=== PATIENT | male | born 1995 | race Caucasian/White ===

== ENCOUNTER 2020-02-29 13:58 | Emergency (ER) | payer BC, SELFPAY ==
[2020-02-29 14:02] VITALS: BP 167/92; PULSE 92; RESP 18; TEMP 37.2; O2SAT 98; BMI 37.3
[2020-02-29 14:14] VITALS: BP 167/92; PULSE 97; RESP 18; TEMP 37.2; O2SAT 98
--- NOTE | 2020-02-29 14:34 | DI.RAD.S_ITS ---
PROCEDURE: XR RIBS LT MIN 3V W CXR1V INDICATIONS: pain/ swelling left ribs TECHNIQUE: 2 views of the left ribs were acquired, along with a single view chest. COMPARISON: None. FINDINGS: Surgical changes and devices: None. Bones and chest wall: No fractures or dislocations. No suspicious bony lesions. Overlying soft tissues appear unremarkable. Lungs and pleura: No pleural effusions or pneumothorax. Lungs appear clear. Mediastinum: Mediastinal contours appear normal. Heart size is normal. IMPRESSION: No gross acute displaced left rib fracture. No acute cardiopulmonary pathology. Dictated by: Adrian Deal M.D. on 02/29/2020 at 15:04 Approved by: Adrian Deal M.D. on 02/29/2020 at 15:05
[2020-02-29] MEDS: KETOROLAC 60 MG/2 ML VIAL IM (14:40)
--- NOTE | 2020-02-29 14:48 | ED_ITS ---
HPI - Skin/Abscess/Foreign Bdy <SHELTON Graham - Last Filed: 02/29/20 16:59> General Chief complaint: Skin/Abscess/Foreign Body Stated complaint: Lump on Lt Side under rib cage Time Seen by Provider: 02/29/20 14:11 Source: patient Mode of arrival: Ambulatory Limitations: no limitations History of Present Illness HPI narrative: The patient is a 24-year-old male nonsmoker who denies pertinent medical history presents with a chief complaint of ?swelling on my left side of my ribs.He states this has been going on for 3 days, no eggs specific factors made him come to the emergency department today other than he wanted to get it checked out does not have a primary care provider. He denies any known injury. Denies any cough or shortness of breath. He has not taken anything for pain or swelling. He denies any specific palpable mass, but complains of generalized swelling to the area. Related Data Allergies Allergy/AdvReac Type Severity Reaction Status Date / Time No Known Drug Allergies Allergy Verified 02/29/20 14:12 Review of Systems <SHELTON Graham - Last Filed: 02/29/20 16:59> Review of Systems Narrative: GENERAL: Denies chills, fatigue, malaise, fever, sweats. HEENT: Denies sinus pain, ear pain, sore throat, difficulty swallowing, dizziness. RESPIRATORY: See HPI CARDIOVASCULAR: Denies chest pain, palpitations, orthopnea, edema, GASTROINTESTINAL: Denies nausea, vomiting, abdominal pain, diarrhea, constipation, melena. : Denies dysuria, frequency, incontinence, hematuria, urinary retention. MUSCULOSKELETAL: denies weakness, joint pain, or bony pain SKIN: Denies rash, skin lesions, or other NEUROLOGIC: Denies weakness, headache, numbness, change in speech, confusion, seizures, incoordination. PSYCHIATRIC: No concerning psychosocial issues. 12 point review of systems is negative except for those stated above Patient History <SHELTON Graham - Last Filed: 02/29/20 16:59> Social History Smoking Status: Never smoker Smoking Status: Never smoker Alcohol type: beer, wine and hard liquor Substance Use Type: does not use Exam <SHELTON Graham - Last Filed: 02/29/20 16:59> Narrative Exam Narrative: GENERAL: This is a well-nourished, well-developed patient, no acute distress HEAD: Atraumatic. Normocephalic. No temporal or scalp tenderness. EYES: Pupils equal round and reactive. Extraocular motions intact. No scleral icterus. No injection or drainage. ENT: Nose without bleeding, purulent drainage or septal hematoma. Throat without erythema, tonsillar hypertrophy or exudate. Uvula midline. Airway patent. NECK: Trachea midline. No JVD or lymphadenopathy. Supple, nontender, no meningeal signs. CARDIOVASCULAR: Regular rate and rhythm RESPIRATORY: Clear to auscultation. Breath sounds equal bilaterally. No wheezes, rales, or rhonchi. Slight swelling to distal anterior aspect of left chest wall. No pain to palpation or palpable mass. No pain to anterior posterior chest wall compression or lateral chest wall compression GASTROINTESTINAL: Abdomen soft, non-tender, nondistended. No hepato- splenomegaly, or palpable masses. No guarding. EXTREMITIES: No clubbing, cyanosis, or edema. No joint tenderness, effusion, or edema noted. BACK: Nontender without deformity or crepitance. No flank tenderness. NEURO: AOx3. SKIN: No rash or erythema on visible skin. No rash erythema laceration abrasion abscess visible lower left anterior chest wall. Initial Vital Signs Initial Vital Signs: Vital Signs Temperature 99 F 02/29/20 14:02 Pulse Rate 92 H 02/29/20 14:02 Respiratory Rate 18 02/29/20 14:02 Blood Pressure 167/92 H 02/29/20 14:02 Pulse Oximetry 98 02/29/20 14:02 <Erik Beebe MD - Last Filed: 02/29/20 18:19> Initial Vital Signs Initial Vital Signs: Vital Signs Temperature 99 F 02/29/20 14:02 Pulse Rate 92 H 02/29/20 14:02 Respiratory Rate 18 02/29/20 14:02 Blood Pressure 167/92 H 02/29/20 14:02 Pulse Oximetry 98 02/29/20 14:02 Course <DA Graham-ROSALIO - Last Filed: 02/29/20 16:59> Orders Ordered: ED Orders 02/29/20 14:34 XR ribs LT min 3V w CXR1V Stat Discontinued Medications Ketorolac Tromethamine (Toradol) 60 mg IM NOW ONE Stop: 04/22/20 14:35 Last Admin: 02/29/20 14:40 Dose: 60 mg Documented by: MEISENB Vital Signs Vital signs: Vital Signs - 8 hr 02/29/20 14:02 02/29/20 14:14 02/29/20 16:07 Temperature 99 F 99.0 F Pulse Rate 92 H 97 H 76 Respiratory Rate 18 18 Blood Pressure 167/92 H 152/81 H Blood Pressure [Right Arm] 167/92 H Pulse Oximetry 98 98 98 <Erik Beebe MD - Last Filed: 02/29/20 18:19> Orders Ordered: ED Orders 02/29/20 14:34 XR ribs LT min 3V w CXR1V Stat Discontinued Medications Ketorolac Tromethamine (Toradol) 60 mg IM NOW ONE Stop: 02/29/20 14:35 Last Admin: 02/29/20 14:40 Dose: 60 mg Documented by: MEISENB Vital Signs Vital signs: Vital Signs - 8 hr 02/29/20 14:02 02/29/20 14:14 02/29/20 16:07 Temperature 99 F 99.0 F Pulse Rate 92 H 97 H 76 Respiratory Rate 18 18 Blood Pressure 167/92 H 152/81 H Blood Pressure [Right Arm] 167/92 H Pulse Oximetry 98 98 98 MDM - Skin/Abscess/Foreign Bdy <SHELTON Graham - Last Filed: 02/29/20 16:59> Differential Diagnosis Differential diagnosis: Likely abscess of skin or subcutaneous tissue, viral exanthem, urticaria and contact dermatitis Imaging Data Chest x-ray: Radiologist's Impression: [address] [place] [id number] XRay Report Signed Patient: Bobby Randle#: [id number] : 1995Acct:[id number] Age/Sex: 24 / MDate of Service: 02/29/20 Loc: ED Accession Number: [id number] Procedure: XR ribs LT min 3V w CXR1V Ordering Provider: Franci Gross PROCEDURE: XR RIBS LT MIN 3V W CXR1V INDICATIONS: pain/ swelling left ribs TECHNIQUE: 2 views of the left ribs were acquired, along with a single view chest. COMPARISON: None. FINDINGS: Surgical changes and devices: None. Bones and chest wall: No fractures or dislocations. No suspicious bony lesions. Overlying soft tissues appear unremarkable. Lungs and pleura: No pleural effusions or pneumothorax. Lungs appear clear. Mediastinum: Mediastinal contours appear normal. Heart size is normal. IMPRESSION: No gross acute displaced left rib fracture. No acute cardiopulmonary pathology. Dictated by: Adrian Deal M.D. on 02/29/2020 at 15:04 Approved by: Adrian Deal M.D. on 02/29/2020 at 15:05 [facility] Narrative Medical decision making narrative: The patient is a 24-year-old male who presents with a chief complaint of concern for swelling in his left anterior rib cage. He has no acute findings on exam, no palpable masses, a normal x-ray. I discussed at length rest ice compression elevation as well as [id number] medications as needed and able. Encourage PCP follow-up in him contact information [facility] educational resource coordinator. Patient has no ques tions or concerns upon discharge and states understanding of return precautions as well as follow-up care. Discharge Plan Departure Patient Disposition: Home Clinical Impression: Chest wall asymmetry Discharge Date/Time: 02/29/20 16:08 Instructions: How To Perform RICE (Rest, Ice, Compress, Elevate) Activity Restrictions/Additional Instructions: Thank you for trusting us with your care today. As discussed, your rib x-ray had no acute abnormalities Please use [id number] medications and ice packs as needed. I have given you contact information at [facility] educational resource coordinator they can help you find a primary care provider and establish care Please come back to the emergency department for any acute concerns such as severe shortness of breath, abdominal pain with fever, chest pain, concern of heart attack or stroke Referrals: [facility] [Outside] <Erik Beebe MD - Last Filed: 02/29/20 18:19> Cosign ED Attending Cosignature Attestation: I was immediately available in the department for consultation. This documentation has been reviewed and I agree with assessment and plan. Supervised by Erik Beebe MD
[2020-02-29 16:07] VITALS: BP 152/81; PULSE 76; O2SAT 98
== END 2020-02-29 16:08 | disposition home or self-care (01) ==
PROVIDERS: Emergency Provider Nurse Practitioner Family
DX: Q67.8 Other congenital deformities of chest (principal)
CPT/HCPCS: 71101; 96372; 99283; J1885